=== PATIENT | male | born 1975 | race Asian ===

== ENCOUNTER 2021-04-04 17:32 | Emergency (ER) | payer OTHER ==
[~2021-04-04] VITALS: Ht 175.3 cm; Wt 77.1 kg
[2021-04-04 18:31] LABS: POTASSIUM 3.2 mmol/L (3.6-5.2)
[2021-04-04 18:49] LABS: PLATELET COUNT 74 K/uL (142-355)
[2021-04-04 20:48] VITALS: BP 195/108; TEMP 98.9
== END 2021-04-04 20:58 | disposition short-term general hospital (02) ==
LOC: ED 17:32
PROVIDERS: Emergency Medicine Emergency Medical Services
DX: R77.8 Other specified abnormalities of plasma proteins (principal); R00.0 Tachycardia, unspecified; Z20.822 Contact with and (suspected) exposure to COVID-19
CPT/HCPCS: 36415; 80053; 80307; 80320; 81000; 82150; 83690; 83735; 84484; 85027; 85610; 87635; 93005; 96360; 96365; 96372; 96375; 96376; 99285; J2060; J2405; J3411; J3475; J3490; U0003

== ENCOUNTER 2021-11-13 22:46 | Emergency (ER) | payer OTHER ==
[~2021-11-13] VITALS: Ht 177.8 cm; Wt 79.4 kg
[2021-11-14] MEDS ORDERED: METOPROLOL25 M1 PO (01:31)
[2021-11-14 05:30] VITALS: BP 157/111
== END 2021-11-14 05:30 | disposition home or self-care (01) ==
LOC: ED 22:46
DX: T78.3XXA Angioneurotic edema, initial encounter (principal); T46.4X1A Poisoning by angiotensin-converting-enzyme inhibitors, accidental (unintentional), initial encounter; X58.XXXA Exposure to other specified factors, initial encounter; Y92.89 Other specified places as the place of occurrence of the external cause
CPT/HCPCS: 36415; 96360; 96361; 96372; 96374; 96375; 96376; 99284; J0171; J1200; J2930; J3490

== ENCOUNTER 2021-11-14 13:04 | Emergency (ER) | payer OTHER ==
[~2021-11-14] VITALS: Ht 177.8 cm; Wt 79.4 kg
[~2021-11-14 13:04] MED LIST: METOPROLOL25 M1 PO
[2021-11-14 13:09] VITALS: BP 100/63; TEMP 97
== END 2021-11-14 14:08 | disposition left against medical advice (07) ==
LOC: ED 13:04
DX: T78.3XXA Angioneurotic edema, initial encounter (principal); R22.0 Localized swelling, mass and lump, head; Z20.822 Contact with and (suspected) exposure to COVID-19; X58.XXXA Exposure to other specified factors, initial encounter; Y92.89 Other specified places as the place of occurrence of the external cause
CPT/HCPCS: 87635; 96372; 99283; J0171; J1200; J2920; U0003